=== PATIENT | male | born 1990 ===

== ENCOUNTER → 2019-05-06 | Outpatient (CLI) | payer OTHER ==
--- NOTE | 2019-05-06 18:14 | Diagnostic Imaging Report ---
PROCEDURE: CT left lower extremity without contrast. TECHNIQUE: Multiple contiguous axial images were obtained through the left lower extremity without the use of intravenous contrast. Sagittal and coronal reformations were then performed. Auto Exposure Controls were utilized during the CT exam to meet ALARA standards for radiation dose reduction. INDICATION: Left knee strain, lateral aspect. CORRELATION STUDY: None FINDINGS: There is slight asymmetric narrowing at the medial femoral tibial compartment. Lateral compartment is better preserved. There is well-corticated bone density adjacent to the lateral tibial plateau. This may reflect a remote Segond fracture which can be associated with underlying anterior cruciate ligament disruptions. The posterior cruciate ligament is visualized. An anterior cruciate ligament cannot be defined on this study. There is presence of joint effusion and surrounding soft tissue edema. Slightly disproportionate greater involving the lateral aspect of the anterior knee compartment and lateral aspect of the soft tissue of the knee including around the lateral collateral ligaments. Additionally, just anterior to the lateral femoral condyle is what appears to be an approximately 8 mm intra-articular calcified loose body. IMPRESSION: 1. Abnormal CT appearance of the left knee. There is presence of joint effusion and surrounding soft tissue edema. This is most pronounced along the lateral aspect of the knee including surrounding a calcified intraarticular loose body. Donor site of this is indeterminate. 2. There are findings suspect for likely more remote Segond type fracture which are typically associated with anterior cruciate ligament tears. The ACL cannot be discretely localized on this examination. 3. MRI would be much more sensitive imaging examination for further assessment of the intrinsic structures of the knee. Dictated by: Dictated on workstation # [id number]
== END ==
LOC: RAD 17:41
PROVIDERS: ATTEND Nurse Practitioner Family
DX: Z04.2 Encounter for examination and observation following work accident (principal); Z02.89 Encounter for other administrative examinations; S83.422D Sprain of lateral collateral ligament of left knee, subsequent encounter; S83.8X2A Sprain of other specified parts of left knee, initial encounter
CPT/HCPCS: 73700

== ENCOUNTER → 2019-06-29 | Outpatient (CLI) | payer OTHER ==
--- NOTE | 2019-06-29 14:17 | Diagnostic Imaging Report ---
PROCEDURE: MRI left joint lower extremity without contrast. TECHNIQUE: Multiplanar, multisequence non contrast-enhanced MRI of the left lower extremity was accomplished. INDICATION: Fall in 2018 with left knee injury. COMPARISON: CT from 05/06/2019. FINDINGS: No acute fracture is seen in the left knee. There is mild motion artifact on multiple sequences resulting in suboptimal evaluation. Mild bone marrow edema and cystlike change is seen at the posterior tibia, particularly medially. A fracture line is not seen. No significant joint effusion is seen. There is mild anterior translation of the tibia with respect to the femur. The articular cartilage in the patellofemoral compartment demonstrates no full-thickness defects. The articular cartilage in the medial compartment demonstrates moderate thinning and surface irregularity with a small full-thickness or near full-thickness defect of the medial femoral condyle measuring approximately 7 mm. The lateral compartment demonstrates mild heterogeneity of the articular cartilage with no large full-thickness defects. There is a horizontal tear of the medial meniscus body and posterior horn, which appears to have a bucket-handle component flipped laterally. There is an oblique tear of the posterior horn and body of the lateral meniscus. There is a chronic-appearing complete tear of the anterior cruciate ligament. There is buckling of the posterior cruciate ligament which appears intact. The medial collateral ligament appears intact. The lateral collateral ligamentous complex demonstrates no ligament tears although there is a multiloculated cystic fluid collection laterally which measures 1.9 x 1.3 cm on axial imaging and 1.9 cm craniocaudal. This appears to have additional anterior extension measuring an additional 2.1 cm (image 13, series 4). This may represent a parameniscal cyst and appears to extend into the meniscal substance. The extensor mechanism appears intact. The medial and lateral retinacula appear intact. There is trace fluid in Morrissey's cyst. Soft tissues about the knee are otherwise unremarkable. IMPRESSION: 1. Complete, chronic-appearing tear of the anterior cruciate ligament in the left knee. 2. Tear of the medial meniscus with a flipped bucket-handle component. Tear of the lateral meniscus with a large parameniscal cyst. 3. Cartilage loss in the medial compartment with associated degenerative changes. Dictated by: Dictated on workstation # [id number]
== END ==
LOC: RAD 09:49
PROVIDERS: ATTEND Nurse Practitioner Family
DX: Z04.2 Encounter for examination and observation following work accident (principal); Z02.89 Encounter for other administrative examinations; S83.8X2A Sprain of other specified parts of left knee, initial encounter; S83.212A Bucket-handle tear of medial meniscus, current injury, left knee, initial encounter; S83.512A Sprain of anterior cruciate ligament of left knee, initial encounter; M17.12 Unilateral primary osteoarthritis, left knee; W19.XXXA Unspecified fall, initial encounter
CPT/HCPCS: 73721